=== PATIENT | male | born 1985 | race African-American/Black ===

== ENCOUNTER 2017-08-08 23:55 | Emergency (ER) | payer MEDICARE, OTHER ==
[~2017-08-08] VITALS: Ht 182.9 cm; Wt 70.3 kg
[~2017-08-08 23:55] MED LIST: BENZ2AMP3 PO; LEVE500T9 PO; THIO1CAP PO
[2017-08-09] MEDS ORDERED: HYDROCODONE/APAP 5-325MG TABLET PO ONE (00:30)
[2017-08-09] MEDS ORDERED: HYDROCODONE/APAP 5-325MG TABLET ONE (00:35)
--- NOTE | 2017-08-09 00:55 | NUR ---
PT IN BED. VISITOR AT BEDSIDE. PT ADMITS REDUCED PAIN IN THUMB AFTER MEDICATION.
--- NOTE | 2017-08-09 01:15 | NUR ---
XRAY AT BEDSIDE.
--- NOTE | 2017-08-09 01:47 | NUR ---
Patient discharged to home in stable conditon. Written and verbal after care instructions given. Patient verbalizes understanding of instructions. Patient reports reduced thumb pain. Patient able to ambulate unassisted with steady gait. Patient left with all personal belongings.
--- NOTE | 2017-08-09 01:47 | NUR ---
PT WAS D/C TO HOME. D/C INSTRUCTIONS GIVEN TO THE PT.
[2017-08-09 01:48] VITALS: BP 136/87
== END 2017-08-09 01:53 | disposition home or self-care (01) ==
LOC: ER 08-09 00:01
DX: S67.01XA Crushing injury of right thumb, initial encounter (principal); Z91.048 Other nonmedicinal substance allergy status; Z79.899 Other long term (current) drug therapy; W23.0XXA Caught, crushed, jammed, or pinched between moving objects, initial encounter; Y99.8 Other external cause status; Y92.89 Other specified places as the place of occurrence of the external cause; Y93.89 Activity, other specified
CPT/HCPCS: 29125; 73140; 99284; A4663

== ENCOUNTER 2020-11-12 16:43 | Emergency (ER) | payer OTHER ==
[~2020-11-12] VITALS: Ht 182.9 cm; Wt 70.3 kg
--- NOTE | 2020-11-12 17:05 | NUR ---
PT IS IN ROOM #2B. DR EDWARDS EVALUATED THE PT.
[2020-11-12 18:02] VITALS: BP 129/82
--- NOTE | 2020-11-12 18:02 | NUR ---
PT WAS D/C'd TO HOME. D/C INSTRUCTIONS GIVEN TO THE PT BY DR EDWARDS.
== END 2020-11-12 18:03 | disposition home or self-care (01) ==
LOC: ER 16:43
DX: S99.921A Unspecified injury of right foot, initial encounter (principal); X58.XXXA Exposure to other specified factors, initial encounter; Y92.89 Other specified places as the place of occurrence of the external cause; F20.9 Schizophrenia, unspecified; G40.909 Epilepsy, unspecified, not intractable, without status epilepticus; Z91.030 Bee allergy status
CPT/HCPCS: 73630; A4663

== ENCOUNTER 2020-11-26 20:49 | Emergency (ER) | payer OTHER ==
[~2020-11-26] VITALS: Ht 182.9 cm; Wt 72.6 kg
[2020-11-26] MEDS ORDERED: NAPR-1164 PO (22:36)
--- NOTE | 2020-11-26 22:54 | NUR ---
Patient discharged to home in stable condition. Written and verbal after care instructions given. Patient verbalizes understanding of instructions. Stressed follow up or return to ER for worsening s/s. Ambulated from ER with stable gait. All belonings with patient. Driven home by mother.
[2020-11-26 22:55] VITALS: BP 128/74
== END 2020-11-26 22:57 | disposition home or self-care (01) ==
LOC: ER 20:49
DX: S80.11XA Contusion of right lower leg, initial encounter (principal); W22.8XXA Striking against or struck by other objects, initial encounter; Y92.89 Other specified places as the place of occurrence of the external cause; F17.210 Nicotine dependence, cigarettes, uncomplicated; Z91.030 Bee allergy status; F20.0 Paranoid schizophrenia; Z87.81 Personal history of (healed) traumatic fracture
CPT/HCPCS: A4663

== ENCOUNTER 2020-12-04 18:58 | Emergency (ER) | payer OTHER ==
[~2020-12-04] VITALS: Ht 180.3 cm; Wt 72.6 kg
[~2020-12-04 18:58] MED LIST changes: +NAPR-1164 PO
--- NOTE | 2020-12-04 19:12 | NUR ---
Dr. Lamas at bedside for mse.
[2020-12-04] MEDS ORDERED: OLANZAPINE 5 MG TABLET PO ONE (19:15)
[2020-12-04] MEDS ORDERED: LORAZEPAM 0.5 MG TABLET PO ONE (19:15)
--- NOTE | 2020-12-04 19:15 | NUR ---
Pt came in today bib mother for insomnia, anxiety, paranoia for past 3 days. Pt. has dx of paranoid schitzoprenia and also has hx methamphetamine use. Pt. states he hasn't used methamphetamines for several days. Pt. appears anxious, his vss and he denies any other symptoms.
[2020-12-04] MEDS ORDERED: OLANZAPINE 5 MG TABLET ONE ×2 (19:24→19:32)
[2020-12-04] MEDS ORDERED: LORAZEPAM 0.5 MG TABLET ONE ×2 (19:24→19:32)
--- NOTE | 2020-12-04 19:29 | NUR ---
When giving the patient the 2mg ativan po and 10 mg zyprexa po, the patient dropped one of the ativan tablets (0.5 mg) and one of the zyprexa tablets (5mg) on the ground. The pills that dropped on the ground were wasted with charge nurse Moshe as witness. A new 0.5 mg ativan tablet and new 5mg zyprexa tablet were removed from the pyxis and given to the pt. In total the patient recieved 2mg po ativan and 10mg po zyprexa as ordered.
--- NOTE | 2020-12-04 19:34 | NUR ---
Patient discharged to home in stable condition. Written and verbal after care instructions given. Patient verbalizes understanding of instructions. Stressed follow up or return to ER for worsening s/s. Pt. walks with steady gait. Pt. is being driven home by his mother.
[2020-12-04 19:35] VITALS: BP 131/69
== END 2020-12-04 19:35 | disposition home or self-care (01) ==
LOC: ER 19:02
DX: F41.9 Anxiety disorder, unspecified (principal); F20.0 Paranoid schizophrenia; F15.10 Other stimulant abuse, uncomplicated; Z91.030 Bee allergy status; F17.210 Nicotine dependence, cigarettes, uncomplicated
CPT/HCPCS: A4663

== ENCOUNTER 2020-12-28 02:20 | Emergency (ER) | payer OTHER ==
[~2020-12-28] VITALS: Ht 175.3 cm; Wt 74.8 kg
[2020-12-28] MEDS ORDERED: HYDROCODONE/APAP 5-325MG TABLET PO ONE (03:00)
[2020-12-28] MEDS ORDERED: HYDROCODONE/APAP 5-325MG TABLET ONE (03:06)
[2020-12-28] MEDS ORDERED: HYDR-4209 PO (04:06)
[2020-12-28] MEDS ORDERED: IBUP-1957 PO (04:06)
--- NOTE | 2020-12-28 04:55 | NUR ---
Patient refused crutches stating "I have crutches at home."
--- NOTE | 2020-12-28 05:00 | NUR ---
Patient discharged to home in stable condition with mother taking patient home. Written and verbal after care instructions given. Patient verbalizes understanding of instructions. Stressed follow up or return to ER for worsening s/s.
[2020-12-28 05:23] VITALS: BP 118/62
== END 2020-12-28 05:23 | disposition home or self-care (01) ==
LOC: ER 02:24
DX: S82.301A Unspecified fracture of lower end of right tibia, initial encounter for closed fracture (principal); W18.30XA Fall on same level, unspecified, initial encounter; Y92.89 Other specified places as the place of occurrence of the external cause; F20.0 Paranoid schizophrenia; Z91.030 Bee allergy status; F17.210 Nicotine dependence, cigarettes, uncomplicated; Z79.899 Other long term (current) drug therapy
CPT/HCPCS: 73590; 73610; A4663

== ENCOUNTER 2021-09-30 03:06 | Emergency (ER) | payer OTHER ==
[~2021-09-30] VITALS: Ht 182.9 cm; Wt 83.9 kg
[~2021-09-30 03:06] MED LIST changes: +HYDR-4209 PO; +IBUP-1957 PO
--- NOTE | 2021-09-30 04:46 | NUR ---
Dr delcid at bedside, MSE in progress.
[2021-09-30] MEDS ORDERED: TDAP DIPH,PERTUSS,TET VAC/PF 0.5 ML DISP.SYRIN IM ONE ×2 (06:15→06:17)
[2021-09-30] MEDS ORDERED: BACITRACIN ZINC OINT 15 GM TUBE TOP ONE (06:15)
[2021-09-30] MEDS ORDERED: BACITRACIN ZINC OINT 15 GM TUBE ONE (06:17)
[2021-09-30] MEDS ORDERED: HYDR-3980 PO (06:44)
[2021-09-30 07:17] VITALS: BP 119/69
--- NOTE | 2021-09-30 07:17 | NUR ---
Patient discharged to home in stable condition. Written and verbal after care instructions given. Patient verbalizes understanding of instructions. Stressed follow up or return to ER for worsening s/s.
== END 2021-09-30 07:18 | disposition home or self-care (01) ==
LOC: ER 03:17
DX: S82.65XA Nondisplaced fracture of lateral malleolus of left fibula, initial encounter for closed fracture (principal); W18.30XA Fall on same level, unspecified, initial encounter; Y92.89 Other specified places as the place of occurrence of the external cause; F20.0 Paranoid schizophrenia; Z91.014 Allergy to mammalian meats; F17.210 Nicotine dependence, cigarettes, uncomplicated; Z79.899 Other long term (current) drug therapy; S80.10XA Contusion of unspecified lower leg, initial encounter; M25.462 Effusion, left knee
CPT/HCPCS: 73590; 73610; 90715; A4663

== ENCOUNTER 2021-10-16 22:27 | Emergency (ER) | payer OTHER ==
[~2021-10-16] VITALS: Ht 182.9 cm; Wt 74.8 kg
[~2021-10-16 22:27] MED LIST changes: +HYDR-3980 PO
--- NOTE | 2021-10-17 00:32 | NUR ---
Dr. Shirley at bedside for MSE.
[2021-10-17] MEDS ORDERED: IBUP-1957 PO (01:34)
[2021-10-17] MEDS ORDERED: IBUPROFEN 600 MG TABLET ONE (01:34)
[2021-10-17] MEDS ORDERED: IBUPROFEN 600 MG TABLET PO ONE (01:45)
--- NOTE | 2021-10-17 01:46 | NUR ---
Patient discharged to home in stable condition. Written and verbal after care instructions given. Patient verbalizes understanding of instructions. Stressed follow up or return to ER for worsening s/s. Patient out of ER with steady gait, no acute signs of distress, VSS, all belongings taken.
[2021-10-17 01:48] VITALS: BP 135/66
== END 2021-10-17 01:48 | disposition home or self-care (01) ==
LOC: ER 22:48
DX: S82.62XD Displaced fracture of lateral malleolus of left fibula, subsequent encounter for closed fracture with routine healing (principal); X58.XXXD Exposure to other specified factors, subsequent encounter; M25.572 Pain in left ankle and joints of left foot; M25.571 Pain in right ankle and joints of right foot; F20.0 Paranoid schizophrenia; Z91.19 Patient's noncompliance with other medical treatment and regimen
CPT/HCPCS: 73610; A4663